=== PATIENT | male | born 1985 | race Caucasian/White ===

== ENCOUNTER 2024-02-16 08:13 | Emergency (ER) | payer BC, OTHER ==
[~2024-02-16] VITALS: Ht 175.3 cm; Wt 117.9 kg
[2024-02-16 08:18] VITALS: BP_SYST 140; PULSE 95; RESP 16; TEMP 97.8; O2SAT 98
[2024-02-16] MEDS ORDERED: SULF1TAB47 PO (08:51)
[2024-02-16 08:59] VITALS: BP_SYST 140; PULSE 95; RESP 16; TEMP 97.8; O2SAT 98
== END 2024-02-16 08:59 | disposition home or self-care (01) ==
LOC: SED 08:13
DX: N45.4 Abscess of epididymis or testis (principal); Z79.899 Other long term (current) drug therapy
CPT/HCPCS: 99284